=== PATIENT | male | born 1990 | race Caucasian/White ===

== ENCOUNTER 2016-12-17 09:23 | Emergency (ER) | payer SELFPAY | END 2016-12-17 11:06 | disposition home or self-care (01) | LOC: D.ER 09:23 | DX: M26.601 Right temporomandibular joint disorder, unspecified (principal); F17.200 Nicotine dependence, unspecified, uncomplicated ==

== ENCOUNTER 2018-05-07 13:23 | Emergency (ER) | payer SELFPAY ==
[~2018-05-07] VITALS: Ht 162.6 cm; Wt 59.1 kg
[2018-05-07 13:26] VITALS: BP 127/70; Ht 162.6 cm; Wt 59.1 kg
== END 2018-05-07 14:16 ==
LOC: D.ER 13:23
DX: S01.81XA Laceration without foreign body of other part of head, initial encounter (principal); W25.XXXA Contact with sharp glass, initial encounter; Y93.89 Activity, other specified; Y92.89 Other specified places as the place of occurrence of the external cause; F63.9 Impulse disorder, unspecified